=== PATIENT | female | born 1975 | race Two or more races ===

== ENCOUNTER 2016-12-12 07:23 | Inpatient (IN) | payer MEDICAID ==
[2016-12-12] MEDS ORDERED: LACTATED RINGERS 1,000 ML ONE (07:55)
[2016-12-12] MEDS ORDERED: DINOPROSTONE 10 MG SUP VG ONE ×2 (07:55→08:02)
[2016-12-12] MEDS ORDERED: LIDOCAINE 1% (PRES FREE) 30 ML VIAL ONE (07:55)
[2016-12-12] MEDS ORDERED: LIDOCAINE Viscous 2% 15 ML UDCUP ONE (07:55)
[2016-12-12] MEDS ORDERED: MINERAL OIL 25 ML BOT ONE (07:55)
[2016-12-12] MEDS ORDERED: IV START KIT ONE (07:55)
[2016-12-12] MEDS ORDERED: OXYTOCIN 10 UNITS/ML VIAL ONE (07:55)
[2016-12-12] MEDS ORDERED: PUMP TUBING ONE (07:55)
[2016-12-12] MEDS ORDERED: OXYTOCIN IN LR 500 ML IV ONE ×2 (07:56→08:02)
[2016-12-12 08:12] LABS: HEMATOCRIT 35.7 % (37.0-47.0); HEMOGLOBIN 11.4 gm/l (12.0-16.0); MEAN CELL VOLUME 89.9 fl (81.0-99.0); MEAN CORPUSCULAR HEMOGLOBIN 28.7 pg (27.0-31.0); MEAN CORPUSCULAR HGB CONC 31.9 g/dl (33.0-37.0); RED CELL DISTRIBUTION WIDTH 13.9 % (11.5-14.5)
[2016-12-12 08:17] VITALS: BMI 36.3
--- NOTE | 2016-12-12 09:38 | PCMAN ---
OB Admission Note - History : 6 Term: 4 : 0 Abortions (S&E): 1 Livin EDC:: 12/19/16 Gestational Age (weeks): 39 Days (#/7): 0 Admit Cervical Dilation:: 3 Admit Cervical Effacement (%):: 30 Admit Station:: -3 Admit Presentaton:: vtx Membrane Status: Intact Contractions: No Heart Rate:: 150 Status:: CAT 1 EFW:: 3.5 kg Summary of Course:: Complicated by AMA, difficult social situation. Does not desire any more babies. Here for IOL secondary to AMA. - Labs Blood Type: B (+) positive Rubella Status: Immune GBS Status: Negative Abnormal Labs: Other (Elevated 1 hour gtt, 3 hour gtt wnl) - Review of Systems No f/c/n/v. No cough or flu like illness. No WING, RUQ pain, vis changes or new onset swelling. Good FM, no lof or vb. Rare UC. - Physical Exam General: Afebrile, No Acute Distress Psych/Mental Status: Mood/Affect Appropriate Lungs: Clear to Auscultation Bilaterally Cardiovascular: Regular Rate and Rhythm, No Murmur Abdomen: Normal Bowel Sounds, Obese, Other (Uerus non tender, baby leopolds to be about 7-8 pounds.) Genitourinary: Normal Female Genitalia Extremities: No Edema Skin: Warm, Dry, No Rash - Problems (1) Advanced maternal age (AMA), 40 years or greater Status: Acute Code: [id number] Assessment/Plan: 41 yo @ 39w here for IOL secondary to AMA. 1. IOL: Informed consent reviewed with PARQ's discussed including but not limited to failure of IOL, prolongation of IOL, uterine tachysystole and slight increased risk for c section. Also discussed risks of waiting until term and increased risk of IUFD given AMA. Will use cervidil as cervix not ready and not yajaira. 2: FWB: Cat 1, overall reassuring. ok for intermittent monitoring if agrees with protocol of cervidil. 3. Pain: declines pain meds for now, considering epidural depending on labor course. 4. GBS negative 5. BCM: BTL. Discussed at length the procedure of PPTL, PARQ's including but not limited to bleeding, infection, damage to bowel and bladder. Consent in chart as well from clinic. Will apply for discount with hospital. 6. Peds: [place] (2) Unwanted fertility Status: Acute Code: Z30.09 Assessment/Plan: Desires PPTL. See plan.
--- NOTE | 2016-12-12 15:08 | PDOC36 ---
Provider Note Subject: Doing well. Min uc's. Cat 1 FHT's. VSSAF. Eating some lunch. Continue with cervidil.
[2016-12-12] MEDS: LACTATED RINGERS 1,000 ML IV SCH (22:00)
[2016-12-12] MEDS: OXYTOCIN IN LR 500 ML IV PRN ×2 (22:03→23:48)
--- NOTE | 2016-12-12 22:06 | PDOC36 ---
Provider Note Subject: Doing well. Cervidil removed without much cervical change. Starting Pitocin, vssaf. Cat 1 FHT's. questions answered. Pt. normally uses CPAP at home for sleep. Did not bring machine. Will discuss with RT to see if they can set her up with machine here.
--- NOTE | 2016-12-13 00:06 | PDOC36 ---
Provider Note Subject: Doing well. Starting to feel uc's mildly. Pit at 2 mu. VSSAF. Cat 1 FHT's. Unable to sleep as normally sleeps with cpap but did not bring her own machine. She will have bring it for tomorrow. Continue pitocin.
[2016-12-13] MEDS: LACTATED RINGERS 1,000 ML IV SCH (02:59)
[2016-12-13] MEDS ORDERED: EPIDURAL PROCEDURE TRAY ONE (03:13)
[2016-12-13] MEDS ORDERED: FENTANYL/ROPIVACAINE EPIDURAL 250 ML EP ONE (03:14)
[2016-12-13] MEDS ORDERED: EPIDURAL PUMP SET ONE (03:14)
[2016-12-13] MEDS ORDERED: FENTANYL/ROPIVACAINE EPIDURAL 250 ML EP SCH (03:30)
[2016-12-13] MEDS ORDERED: LACTATED RINGERS 500 ML IV PRN (04:30)
[2016-12-13] MEDS ORDERED: EPHEDRINE SULFATE 50 MG/ML 1ML VIAL IV PRN (04:30)
[2016-12-13] MEDS ORDERED: METOCLOPRAMIDE HCL 5 MG/ML 2ML VIAL IV PRN (04:30)
[2016-12-13] MEDS ORDERED: LACTATED RINGERS 1,000 ML IV SCH (04:30)
[2016-12-13] MEDS ORDERED: NALOXONE HCL 0.4 MG/ML VIAL IV PRN (04:30)
[2016-12-13] MEDS ORDERED: DIPHENHYDRAMINE HCL 50 MG/1 ML VIAL IV PRN (04:30)
[2016-12-13] MEDS ORDERED: NALBUPHINE HCL 20 MG/ML AMP IV PRN (04:30)
[2016-12-13] MEDS ORDERED: SODIUM CHLORIDE 0.9% 500 ML IV PRN (04:30)
[2016-12-13] MEDS ORDERED: ONDANSETRON 4 MG/2ML 2 ML VIAL IV PRN (04:30)
[2016-12-13] MEDS ORDERED: MINERAL OIL 25 ML BOT PO ONE (05:01)
[2016-12-13] MEDS ORDERED: BENZOCAINE/MENTHOL 60 APPLIC/BOT TP PRN (05:02)
[2016-12-13] MEDS ORDERED: LACTATED RINGERS 1,000 ML IV PRN (05:02)
[2016-12-13] MEDS ORDERED: CALCIUM CARBONATE 500 MG TAB.CHEW PO PRN (05:02)
[2016-12-13] MEDS ORDERED: MAGNESIUM HYDROXIDE 30 ML UDCUP PO PRN (05:02)
[2016-12-13] MEDS ORDERED: LANOLIN 50 APPLIC/7G TUBE TP PRN (05:02)
--- NOTE | 2016-12-13 05:08 | PCMDEL ---
Delivery Note - Labor 1st stage (hr/min):: 1.5 hr 2nd stage (hr/min):: 35 min 3rd stage (hr/min):: 6 min Total (hr/min):: 2hr10 min Pushed (hr/min):: 30 min - Delivery Delivery (Date): 12/13/16 Delivery (Time): 04:41 Gender: Female Presentation: Cephalic Position: OA Umbilical Cord: 3 Vessel Delayed Cord Clamping:: 2-3 min Placenta:: wnl EBL:: 150 Perineum:: intact Suture:: none Anesthesia/Meds:: epidural Length ROM:: 9hr45 min Comments:: IOL for AMA. Epidural with dense block. Delay in effective pushing secondary to epidural and maternal exhaustion. Vigorous female after epidural wore off a bit. Intact perineum. So variables with pushing. Delay in cord clamping between 2-3 min.
[2016-12-13] MEDS: IBUPROFEN 600 MG TABLET PO PRN ×2 (09:47→16:45)
[2016-12-13 09:52] LABS: HEMATOCRIT 35.9 % (37.0-47.0); HEMOGLOBIN 11.6 gm/l (12.0-16.0); MEAN CELL VOLUME 90.2 fl (81.0-99.0); MEAN CORPUSCULAR HEMOGLOBIN 29.1 pg (27.0-31.0); MEAN CORPUSCULAR HGB CONC 32.3 g/dl (33.0-37.0)
[2016-12-13] MEDS: HYDROCODONE/ACETAMINOPHEN 5/325MG TABLET PO PRN (20:30)
[2016-12-14] MEDS: IBUPROFEN 600 MG TABLET PO PRN ×2 (02:27→20:13)
[2016-12-14] MEDS: HYDROCODONE/ACETAMINOPHEN 5/325MG TABLET PO PRN ×4 (02:29→20:13)
[2016-12-14] MEDS: LACTATED RINGERS 1,000 ML IV SCH ×2 (06:11→19:25)
[2016-12-14] MEDS ORDERED: SPINAL PROCEDURAL TRAY 1 EACH ONE (07:20)
[2016-12-14] MEDS ORDERED: BUPIVACAINE 0.75% SPINAL AMPUL 2 ML ONE (07:20)
[2016-12-14] MEDS ORDERED: FENTANYL 100 MCG/2 ML VIAL ONE ×2 (09:15→10:54)
--- NOTE | 2016-12-14 09:21 | PDOC44 ---
- Subjective Day: 1 Patient NPO after midnight in preparation for BTL. Doing well. Nervous about spinal. States still having WING and neck pain, considering blood patch if it is a spinal headache after epidural. Tolerating PO. Ambulating without dizziness. Pain controlled. BF well. Reports Pain Tolerable, Reports , Reports Lochia Light, Reports Tolerating Regular Diet, Denies Nausea, Denies Vomiting - Objective Temp Pulse Resp BP Pulse Ox 98.2 F 75 18 98/53 98 12/14/16 07:10 12/14/16 07:10 12/14/16 07:10 12/14/16 07:10 12/14/16 07:10 Lab Results 12/13/16 09:40 WBC 15.8 H RBC 3.98 L Hgb 11.6 L Hct 35.9 L Plt Count 203 12/13/16 09:40 MCHC 32.3 L Current Medications Generic Name Dose Route Start Last Admin Trade Name Freq PRN Reason Stop Dose Admin Acetaminophen/Hydrocodone Bitart 1 - 2 tab 12/13/16 05:02 12/14/16 02:29 [place] 5/325 PO 1 tab Q4H PRN Administration Pain (Moderate) Benzocaine/Menthol 1 applic 12/13/16 05:02 Dermoplast TP PRN PRN Patient Comfort Calcium Carbonate/Glycine 500 mg 12/13/16 05:02 Tums PO BID PRN Indigestion Docusate Sodium 100 mg 12/13/16 05:02 Colace PO DAILY PRN Comfort Emollient Ointment 1 applic 12/13/16 05:02 Uuv-Z-Cyiumf TP PRN PRN sore nipples Lactated Ringer's 1,000 mls @ 100 mls/hr 12/13/16 05:02 12/14/16 02:26 Lactated Ringers IV 100 mls/hr .Q10H PRN Administration Titrate per clinical situation Lactated Ringer's 1,000 mls @ 125 mls/hr 12/14/16 05:02 12/14/16 06:11 Lactated Ringers IV 125 mls/hr .Q8H TAYLOR Administration Ibuprofen 600 mg 12/13/16 05:02 12/14/16 02:27 Motrin PO 600 mg Q6H PRN Administration Pain (Mild) Magnesium Hydroxide 30 ml 12/13/16 05:02 Milk Of Magnesia PO BEDTIME PRN Constipation Sodium Chloride 10 ml 12/12/16 09:00 12/14/16 05:59 Normal Saline 10ml Flush IV Not Given Q8HR TAYLOR Sodium Chloride 10 ml 12/13/16 05:02 Normal Saline 10ml Flush IV PRN PRN IV Flush - Physical Exam General: Afebrile, No Acute Distress Psych/Mental Status: Mood/Affect Appropriate, Bonding Well Neurological: Alert, Normal Gait, Normal Speech Lungs: Clear to Auscultation Bilaterally, Normal Air Movement Cardiovascular: Regular Rate and Rhythm, Normal S1, Normal S2 Breast: Nipples Intact Fundus: Firm, Midline Extremities: Full ROM, No Edema, No Tenderness Skin: Normal Color, Warm, Dry, Intact, No Rash - Problems:Assessment/Plan (1) Unwanted fertility Status: Acute Assessment/Plan: PP BTL this am (2) (normal spontaneous vaginal delivery) Status: Acute Assessment/Plan: Doing well Continue routine PP care Anticipate d/c tomorrow Disposition: Stable, Anticipate DC Home Tomorrow
[2016-12-14] MEDS: FENTANYL 100 MCG/2 ML VIAL IV PRN ×3 (09:24→11:10)
--- NOTE | 2016-12-14 09:27 | PCMBTL ---
Brief Post Op Note: Date of Procedure: 12/14/16 Start Time: 814 Preoperative Diagnosis: 1. Multiparity, undesired fertility Postoperative Diagnosis: 1. Same Procedure: Bilateral tubal ligation via modified Ludin method Surgeon: Delphine Maria MD Anesthesia: spinal by Joel Garcia CRNA Findings: Normal uterine fundus and fallopian tubes Condition: stable Complications: none IV Fluids: 800 mLs of LR Urine Output: 75 mLs Estimated Blood Loss: 5 mLs Specimens: Segments of bilateral fallopian tubes DESCRIPTION OF PROCEDURE: Patient was taken to operating room where spinal anesthesia was administered and found to be adequate. Patient was prepped and draped in normal sterile fashion and prepared for an abdominal procedure. Time out was performed. A small infraumbilical incision was made and carried down sharply to the level of the fascia. The peritoneum was entered bluntly. The R fallopian tube was identified and carried out to the fimbrae with a Wilder clamp. A midportion of the tube was ligated times 2 and excised. The ostia were identified and cauterized. The tube was returned to the abdomen. The procedure was then repeated on the left side. Segments of the tubes will be sent to Pathology. The fascia was identified and closed in a running fashion with 0 Vicryl. The skin was closed with 4-0 Vicryl in a subcuticular manner. The patient tolerated the procedure well and went to recovery in stable condition. Sponge, needle and instrument counts were correct x 2.
[2016-12-14] MEDS: DOCUSATE SODIUM 100 MG CAPSULE PO PRN (15:13)
[2016-12-14] MEDS ORDERED: CYCLOBENZAPRINE HCL 10 MG TABLET PO ONE (21:30)
[2016-12-15] MEDS: LACTATED RINGERS 1,000 ML IV SCH ×2 (00:39→05:56)
[2016-12-15] MEDS: HYDROCODONE/ACETAMINOPHEN 5/325MG TABLET PO PRN ×2 (04:47→11:41)
[2016-12-15] MEDS: IBUPROFEN 600 MG TABLET PO PRN ×2 (04:48→11:41)
--- NOTE | 2016-12-15 07:17 | PDOC36 ---
Provider Note Subject: Note Note: Called by RN this am because patient continues to have neck pain and headache, now frontal. Overnight, we were unsure if WING was due to muscle tension, so Flexeril x 1 was ordered. WING has returned especially when patient gets up and walks around. WING improves with lying flat but takes over an hour to improve. I have asked RN to please ask the [employer] contracts paralegal today to evaluate patient for a possible blood patch. WING started after delivery, and thought to possibly be due to her epidural. It improved a little on PPD1, so blood patch was not done. Patient will be discharged today and is worried about going home and caring for her infant with this persistent neck pain and headache.
[2016-12-15] MEDS ORDERED: EPIDURAL PROCEDURE TRAY ONE (09:55)
--- NOTE | 2016-12-15 10:10 | PDOC39B ---
Hospital Course: ADMIT DATE: 12/12/16 DISCHARGE DATE: 12/15/16 ADMISSION DIAGNOSES: IOL for AMA PROCEDURES: , and PP BTL and blood patch for spinal headache HISTORY OF PRESENT ILLNESS: 41 year old G6 T4 L4 at 39 weeks 1 days presenting with here for IOL for AMA. HOSPITAL COURSE: The patient delivered by . had PP BTL, and subsequent spinal headache, blood patch was done prior to discharge. By day of discharge the patient is ambulating, eating, voiding, and passing flatus without difficulty. Pain is controlled and lochia is appropriate. She is [] - Physical Exam Vital Signs: Temp Pulse Resp BP Pulse Ox 98.4 F 93 18 118/59 98 12/15/16 07:20 12/15/16 07:20 12/15/16 07:20 12/15/16 07:20 12/14/16 20:49 General: Afebrile, Severe Distress Neurological: Alert, Oriented x 4, Normal Speech Lungs: Clear to Auscultation Bilaterally Cardiovascular: Regular Rate and Rhythm Breast: Nipples Cracked Fundus: Firm, At Umbilicus Abdomen: Normal Bowel Sounds Lochia: Light Rectal Exam: Deferred Extremities: Other (nt, no edema) Skin: Normal Color - Discharge Diagnosis (1) (normal spontaneous vaginal delivery) Status: Acute Assessment/Plan: Doing well Continue routine PP care discharge home after blood patch (2) Unwanted fertility Status: Acute Assessment/Plan: POD #2 PP BTL doing well d/c home - Discharge Plan Condition: Good Disposition: Home Prescriptions: Ibuprofen [Motrin] 800 mg PO Q8H PRN #30 tablet PRN Reason: Pain Hydrocodone Bit/Acetaminophen [[place] 5/325] 1 tab PO Q4-6H PRN #30 tablet PRN Reason: Pain Follow-Up: Davida Jackson PA [Primary Care Provider] - In 2 weeks
[2016-12-15] MEDS ORDERED: IV START KIT ONE (10:49)
[2016-12-15 11:36] VITALS: BP 99/55
[2016-12-15] MEDS: DOCUSATE SODIUM 100 MG CAPSULE PO PRN (11:42)
--- NOTE | 2016-12-16 09:36 | SURGPATH ---
[facility] [address] [place] [id number] Patient Name: ARIEL CANDELARIA MR#: [id number] : 1975 Gender: F Specimen #: [id number] Collected: 12/14/2016 Received: 12/15/2016 Reported: 12/16/2016 Submitting Phys: JANET MORLEY [facility] Clinical History / Pre-Operative Diagnosis: 41-YEAR-OLD , PPD #1; STATUS POST ; DESIRES BILATERAL TUBAL LIGATION Specimen Source / Surgical Procedure Performed: FALLOPIAN TUBE SEGMENTS, LEFT AND RIGHT (RIGHT TUBE WITH TIE) Interpretation: LEFT AND RIGHT FALLOPIAN TUBE, TUBAL LIGATION: - COMPLETE CROSS-SECTION OF BILATERAL FALLOPIAN TUBES Electronically Signed Out Zohaib Abebe M.D. Gross Description: The specimen is received in a formalin filled container labeled with the patient's name and "fallopian tubes". Two cylindrical segments of ornelas tissue are each 1.5 x 0.5 cm. One segment has an attached suture and is inked black. A dealer compliance representative cross section of each is submitted in one cassette. Ramo Washburn Microscopic Description: Microscopic performed. 1: 05425(8) J94.2
== END 2016-12-15 14:00 | disposition home or self-care (01) | DRG 767 ==
LOC: FBC 07:23 → EDSTATUS 12-19 07:04
PROVIDERS: ADMIT Family Medicine; ATTEND Family Medicine
PROC: 3E0P7GC Introduction of Other Therapeutic Substance into Female Reproductive, Via Natural or Artificial Opening (ICD-10-PCS; 2016-12-12)
PROC: 10E0XZZ Delivery of Products of Conception, External Approach (ICD-10-PCS; principal; 2016-12-13)
PROC: 00HU33Z Insertion of Infusion Device into Spinal Canal, Percutaneous Approach (ICD-10-PCS; 2016-12-13)
PROC: 0UB70ZZ Excision of Bilateral Fallopian Tubes, Open Approach (ICD-10-PCS; 2016-12-14)
PROC: 3E0R3GC Introduction of Other Therapeutic Substance into Spinal Canal, Percutaneous Approach (ICD-10-PCS; 2016-12-15)
DX: O99.52 Diseases of the respiratory system complicating childbirth (principal); G47.33 Obstructive sleep apnea (adult) (pediatric); O76 Abnormality in fetal heart rate and rhythm complicating labor and delivery; O75.81 Maternal exhaustion complicating labor and delivery; Z30.2 Encounter for sterilization; O89.4 Spinal and epidural anesthesia-induced headache during the puerperium; Z3A.39 39 weeks gestation of pregnancy; Z37.0 Single live birth